=== PATIENT | male | born 1990 | race Caucasian/White ===

== ENCOUNTER 2020-06-03 20:03 | Emergency (ER) | payer OTHER ==
[~2020-06-03] VITALS: Ht 180.3 cm; Wt 104.3 kg
[~2020-06-03 20:03] MED LIST: DIPATR PO
== END 2020-06-03 22:58 | disposition home or self-care (01) ==
LOC: ER 20:03
DX: M24.412 Recurrent dislocation, left shoulder (principal); M25.212 Flail joint, left shoulder; X50.1XXA Overexertion from prolonged static or awkward postures, initial encounter
CPT/HCPCS: 29105; 73030; 99283-25

== ENCOUNTER 2021-10-12 18:57 | Emergency (ER) | payer OTHER ==
[~2021-10-12] VITALS: Ht 180.3 cm; Wt 108.0 kg
== END 2021-10-12 20:25 | disposition home or self-care (01) ==
LOC: ER 18:57
DX: S63.602A Unspecified sprain of left thumb, initial encounter (principal); X58.XXXA Exposure to other specified factors, initial encounter
CPT/HCPCS: 73130; 99283-25

== ENCOUNTER → 2022-03-06 | Outpatient (CLI) | payer OTHER | END | disposition home or self-care (01) | LOC: LAB SHORT 16:34 | DX: T14.90XA Injury, unspecified, initial encounter (principal) | CPT/HCPCS: 87070; 87075; 87077; 87147; 87186; 87205 ==

== ENCOUNTER 2023-05-17 20:45 | Emergency (ER) | payer OTHER ==
[~2023-05-17] VITALS: Ht 180.3 cm; Wt 104.3 kg
[2023-05-17 20:53] VITALS: BP 166/92
== END 2023-05-17 21:07 | disposition home or self-care (01) ==
LOC: ER 20:45
DX: R60.0 Localized edema (principal)
CPT/HCPCS: 99282

== ENCOUNTER 2024-04-20 11:17 | Emergency (ER) | payer OTHER ==
[~2024-04-20] VITALS: Ht 177.8 cm; Wt 113.4 kg
[2024-04-20 11:21] VITALS: BP 157/93
[2024-04-20] MEDS ORDERED: Diphth,Pertuss(Acell),Tet Vac 0.5 ML VIAL IM ONE (12:25)
== END 2024-04-20 12:43 | disposition home or self-care (01) ==
LOC: ER 11:17
DX: S62.304A Unspecified fracture of fourth metacarpal bone, right hand, initial encounter for closed fracture (principal); V89.2XXA Person injured in unspecified motor-vehicle accident, traffic, initial encounter
CPT/HCPCS: 29125; 73130; 90471; 90715; 99283-25